=== PATIENT | male | born 1970 | race Caucasian/White ===

== ENCOUNTER 2022-03-14 06:14 | Emergency (ER) | payer SELFPAY ==
[2022-03-14 06:23] VITALS: TEMP 98.4; BMI 25.8
[2022-03-14 07:02] VITALS: BP 115/75; PULSE 63
[2022-03-14 08:00] LABS: BASO % 0.6 % (0-2.0); EOS % 2.1 % (0-4.5); HEMATOCRIT 43.7 % (35.4-49); HEMOGLOBIN 14.7 GM/dL (11.7-16.9); LYMPH % 23.5 % (8-40); MCH 29.4 pg (25.7-33.7); MCHC 33.7 g/dl (32.0-35.9); MEAN CELL VOLUME 87.2 fl (80-96); MEAN PLT VOLUME 8.4 fl (7.5-11.1); MONO % 6.8 % (3.8-10.2); PLATELET COUNT 257 10^3/uL (134-434); RBC 5.01 M/mm3 (4.00-5.60); RDW 14.1 % (11.9-15.9); WHITE BLOOD COUNT 8.5 K/mm3 (4.0-10.0)
[2022-03-14 08:30] LABS: CALCIUM 9.1 mg/dL (8.5-10.1)
[2022-03-14 08:31] LABS: BLOOD UREA NITROGEN 24.3 mg/dL (7-18)
[2022-03-14 08:34] LABS: CREATININE 1.1 mg/dL (0.55-1.3)
[2022-03-14 08:35] LABS: TOT PROT 7.6 g/dl (6.4-8.2)
[2022-03-14 08:39] LABS: BILIRUBIN,TOTAL 0.4 mg/dL (0.2-1)
[2022-03-14 08:45] LABS: EPI CELLS 6 /uL (0-25.1); HYALINE CASTS 1 /uL (0-3.1); URINE APPEARANCE CLEAR; URINE BACTERIA 5 /uL (0-1359); URINE BILIRUBIN NEGATIVE (NEGATIVE); URINE COLOR YELLOW; URINE GLUCOSE (UA) NEGATIVE (NEGATIVE); URINE KETONE NEGATIVE (NEGATIVE); URINE LEUK ESTERASE 1+ (NEGATIVE); URINE NITRITE NEGATIVE (NEGATIVE); URINE PROTEIN 1+ (NEGATIVE); URINE RBC 6 /uL (0-23.9); URINE WBC 77 /uL (0-25.8)
== END 2022-03-14 10:22 | disposition home or self-care (01) ==
LOC: JER 06:14
DX: N39.0 Urinary tract infection, site not specified (principal)
CPT/HCPCS: 36415; 80053; 81003; 85025; 87086; 99283-25